=== PATIENT | female | born 1950 | race Caucasian/White ===

== ENCOUNTER → 2016-12-09 | Day surgery (SDC) | payer OTHER ==
--- NOTE | 2016-12-10 14:20 | PATH ---
Cytology Non-Gynecological Report Patient Name: CELE OREILLY [facility]. Rec. #: [id number] /Age/Gender: 1950 (Age: 65) / F Account: [id number] Location: RADIOLOGY Taken: 12/09/2016 Received: 12/09/2016 Reported: 12/10/2016 Physicians: Virginia Mullen M.D. Specimen(s) Received THYROID FNA (MIDLINE) Clinical History Midline thyroid nodule, 2.51 x 1.90 x 2.69 cm Final Diagnosis THYROID GLAND, MIDLINE, US GUIDED FINE NEEDLE ASPIRATION BIOPSY: SATISFACTORY FOR EVALUATION. NO MALIGNANT CELLS IDENTIFIED. CONSISTENT WITH NODULAR HYPERPLASIA (BENIGN FOLLICULAR NODULE, BETHESDA CATEGORY II, BENIGN), SEE COMMENT. Comment: The smears show clusters of bland appearing follicular epithelial cells, many with Hurthle cell (oncocytic) change arranged in mixed macro- and microfollicles. Colloid is present. Electronically Signed Jordan Lopez M.D. Gross Description Received are four air dried smears, four smears in 95% alcohol, and 20 cc of bloody fluid in formalin. Four diff-quik stained slides, four Pap stained slides and one cell block are made.
== END | disposition home or self-care (01) ==
LOC: JRADIR 09:06
PROVIDERS: ATTEND Internal Medicine Endocrinology, Diabetes & Metabolism
PROC: 0G9K3ZX Drainage of Thyroid Gland, Percutaneous Approach, Diagnostic (ICD-10-PCS; principal; 2016-12-09)
PROC: BG44ZZZ Ultrasonography of Thyroid Gland (ICD-10-PCS; 2016-12-09)
DX: E04.1 Nontoxic single thyroid nodule (principal)
CPT/HCPCS: 76942; 88173; 88305-TC

== ENCOUNTER 2018-05-14 14:59 | Emergency (ER) | payer OTHER ==
[2018-05-14 15:06] VITALS: BP 134/64; PULSE 82; TEMP 97.9; BMI 30.3
--- NOTE | 2018-05-14 15:52 | PDOC ---
History of Present Illness - General Chief Complaint: Cold Symptoms Stated Complaint: COUGH Time Seen by Provider: 05/14/18 15:06 History Source: Patient Exam Limitations: Language Barrier Past History - Past Medical History Allergies/Adverse Reactions: Allergies Allergy/AdvReac Type Severity Reaction Status Date / Time No Known Allergies Allergy Verified 05/14/18 15:04 Home Medications: Ambulatory Orders Hydrochlorothiazide [Hctz -] 12.5 mg PO DAILY 05/14/18 Meloxicam [Mobic] 15 mg PO ASDIR 05/14/18 Methimazole 5 mg PO ASDIR 05/14/18 Sertraline HCl [Zoloft -] 25 mg PO DAILY 05/14/18 Simvastatin 20 mg PO ASDIR 05/14/18 COPD: No HTN: Yes Seizures: Yes - Suicide/Smoking/Psychosocial Hx Smoking History: Never smoked *Physical Exam - Vital Signs Last Vital Signs Temp Pulse Resp BP Pulse Ox 97.9 F 82 18 134/64 99 05/14/18 15:04 05/14/18 15:04 05/14/18 15:04 05/14/18 15:04 05/14/18 15:04 - Physical Exam HEENT: positive: Normal ENT Inspection, TMs Normal, Pharynx Normal. negative: Muffled/Hoarse voice, Pharyngeal Erythema, Tonsillar Exudate, Tonsillar Erythema , Nasal Congestion, Rhinorrhea, Sinus Tenderness, TM Bulging, TM Erythema Respiratory/Chest: positive: Lungs Clear, Normal Breath Sounds. negative: Respiratory Distress Cardiovascular: positive: Regular Rhythm, Regular Rate, S1, S2. negative: Murmur Gastrointestinal/Abdominal: positive: Normal Bowel Sounds, Soft. negative: Tender, Distended, Guarding, Rebound Integumentary: positive: Normal Color Neurologic: positive: Alert Moderate Sedation - Procedure Monitoring Vital Signs: Procedure Monitoring Vital Signs Temperature 97.9 F 05/14/18 15:04 Pulse Rate 82 05/14/18 15:04 Respiratory Rate 18 05/14/18 15:04 Blood Pressure 134/64 05/14/18 15:04 O2 Sat by Pulse Oximetry (%) 99 05/14/18 15:04 ED Treatment Course - RADIOLOGY Radiology Studies Ordered: Category Date Time Status CHEST PA & LAT [RAD] Stat Radiology 05/14/18 15:28 Taken Medical Decision Making - Medical Decision Making 67 y/o F hx of HTN, hyperthyroidism, gastritis presents with dry cough x 20 days along with rhinorrhea, slight nasal congestion, dry throat. Has been trying to contact her PCP but unable to make appointment. Denies fever, sob, wheezing, cp, abd pain, n/v/d. PE unremarkable Given duration of symptoms, will get CXR 05/14/18 15:50 CXR reviewed and negative Also reviewed patient's HTN meds and patient is only taking Hctz Advised f/u with PCP for further care 05/14/18 16:00 *DC/Admit/Observation/Transfer Diagnosis at time of Disposition: Cough - Discharge Dispostion Disposition: HOME Condition at time of disposition: Good - Referrals Referrals: Asael Emanuel MD [Primary Care Provider] - 3 days - Patient Instructions Printed Discharge Instructions: DI for Cough -- Adult - Post Discharge Activity
== END 2018-05-14 16:03 | disposition home or self-care (01) ==
LOC: JERFT 14:59
DX: R05 Cough (principal); I10 Essential (primary) hypertension; E05.91 Thyrotoxicosis, unspecified with thyrotoxic crisis or storm; Z86.69 Personal history of other diseases of the nervous system and sense organs
CPT/HCPCS: 71046-TC-FY; 99281-25

== ENCOUNTER 2019-04-12 12:51 | Emergency (ER) | payer OTHER ==
[2019-04-12 12:57] VITALS: BP 132/63; PULSE 90; TEMP 98.1; BMI 29.0
[2019-04-12] MEDS ORDERED: LIDOCAINE HCL 1%, 10 MG/ML (50 mL VIAL) SQ ONE (14:36)
[2019-04-12] MEDS ORDERED: LIDOCAINE HCL 1%, 10 MG/ML (20ML VIAL) ONE (14:42)
--- NOTE | 2019-04-12 15:07 | PDOC ---
History of Present Illness - General Chief Complaint: Pain Stated Complaint: BACK PAIN Time Seen by Provider: 04/12/19 13:25 - History of Present Illness Initial Comments: 04/12/19 15:05 68-year-old female presents for evaluation of a painful area on her back x2 weeks no systemic symptoms Past History - Past Medical History Allergies/Adverse Reactions: Allergies Allergy/AdvReac Type Severity Reaction Status Date / Time No Known Allergies Allergy Verified 04/12/19 12:57 Home Medications: Ambulatory Orders Hydrochlorothiazide [Hctz -] 12.5 mg PO DAILY 05/14/18 Meloxicam [Mobic] 15 mg PO ASDIR 05/14/18 Methimazole 5 mg PO ASDIR 05/14/18 Sertraline HCl [Zoloft -] 25 mg PO DAILY 05/14/18 Simvastatin 20 mg PO ASDIR 05/14/18 Cephalexin [Keflex] 500 mg PO QID #40 capsule 04/12/19 Sulfamethoxazole/Trimethoprim [Bactrim Ds -] 1 tab PO BID #14 tablet 04/12/19 COPD: No HTN: Yes Hypercholesterolemia: Yes Seizures: Yes Thyroid Disease: Yes Other medical history: DEPRESSION - Psycho Social/Smoking Cessation Hx Smoking History: Never smoked Review of Systems - Review of Systems Constitutional: No: Fever Integumentary: Yes: See HPI *Physical Exam - Vital Signs Last Vital Signs Temp Pulse Resp BP Pulse Ox 98.1 F 90 18 132/63 98 04/12/19 12:54 04/12/19 12:54 04/12/19 12:54 04/12/19 12:54 04/12/19 12:54 - Physical Exam Comments: 04/12/19 15:06 There is a large fluctuant mildly erythemic area with mild surrounding warmth on the mid upper back about 6 cm circumferentially ED Treatment Course - Medications Given in the ED: ED Medications Discontinued Medications Generic Name Dose Route Start Last Admin Trade Name Freq PRN Reason Stop Dose Admin Lidocaine HCl 20 ml 04/12/19 14:36 04/12/19 14:44 Xylocaine 1% SQ 04/12/19 14:37 20 ml ONCE ONE Administration Medical Decision Making - Medical Decision Making 04/12/19 15:06 Aseptically the area was sterilely prepped anesthetized with 15 cc 1% lidocaine without epinephrine incised vertically purulent material was cultured the wound was deloculated packed with 1 inch iodoform and a dry sterile dressing was placed this was tolerated well. Discharge - Discharge Information Problems reviewed: Yes Clinical Impression/Diagnosis: Abscess Condition: Stable Disposition: HOME - Admission No - Additional Discharge Information Prescriptions: Cephalexin [Keflex] 500 mg PO QID #40 capsule Sulfamethoxazole/Trimethoprim [Bactrim Ds -] 1 tab PO BID #14 tablet - Follow up/Referral Referrals: Asael Emanuel MD [Primary Care Provider] - - Patient Discharge Instructions Patient Printed Discharge Instructions: DI for Skin Abscess, Incision and Drainage of a Skin Abscess, DI for Incision and Drainage of a Skin Abscess Additional Instructions: Please start the antibiotics today and take them as directed. Tylenol and Motrin as directed for pain. Return to the emergency room in 2 days for a wound check and packing removal. Return to the emergency room sooner if problems develop. Keep the wound clean and dry the dressing in place for the next 48 hours until reevaluated in the emergency room. - Post Discharge Activity
== END 2019-04-12 15:31 | disposition home or self-care (01) ==
LOC: JERFT 12:51
PROC: 0J970ZZ Drainage of Back Subcutaneous Tissue and Fascia, Open Approach (ICD-10-PCS; principal; 2019-04-12)
PROC: 3E023BZ Introduction of Anesthetic Agent into Muscle, Percutaneous Approach (ICD-10-PCS; 2019-04-12)
DX: L02.212 Cutaneous abscess of back [any part, except buttock and flank] (principal); I10 Essential (primary) hypertension; E78.00 Pure hypercholesterolemia, unspecified; E07.9 Disorder of thyroid, unspecified; F32.9 Major depressive disorder, single episode, unspecified; Z86.69 Personal history of other diseases of the nervous system and sense organs
CPT/HCPCS: 87070; 87205; 99281-25

== ENCOUNTER 2019-04-14 19:39 | Emergency (ER) | payer OTHER ==
[2019-04-14 19:51] VITALS: BP 139/56; PULSE 86; TEMP 98.5; BMI 29.0
--- NOTE | 2019-04-14 19:52 | PDOC ---
Rapid Medical Evaluation Time Seen by Provider: 04/14/19 19:50 Medical Evaluation: Allergies Allergy/AdvReac Type Severity Reaction Status Date / Time No Known Allergies Allergy Verified 04/14/19 19:47 04/14/19 19:50 Pt presents for packing removal from abscess drainage on her back on 04/12. Seen in our ED. She is taking the antibiotics as directed Exam: Packing/dressing in place. Orders: Nothing Pt to proceed to the ER for further evaluation Discharge Disposition - Diagnosis Abscess packing removal - Referrals - Patient Instructions - Post Discharge Activity
--- NOTE | 2019-04-14 20:28 | PDOC ---
History of Present Illness - General Chief Complaint: Revisit,Wound Recheck Stated Complaint: SUTRE/STAPLE REMOVAL Time Seen by Provider: 04/14/19 19:50 - History of Present Illness Initial Comments: 04/14/19 20:26 68-year-old female presents for reevaluation of the wound which was incised and drained 2 days ago by myself. Since incision and drainage she has had no sequelae she is feeling better no systemic symptoms Past History - Past Medical History Allergies/Adverse Reactions: Allergies Allergy/AdvReac Type Severity Reaction Status Date / Time No Known Allergies Allergy Verified 04/14/19 19:47 Home Medications: Ambulatory Orders Hydrochlorothiazide [Hctz -] 12.5 mg PO DAILY 05/14/18 Meloxicam [Mobic] 15 mg PO ASDIR 05/14/18 Methimazole 5 mg PO ASDIR 05/14/18 Sertraline HCl [Zoloft -] 25 mg PO DAILY 05/14/18 Simvastatin 20 mg PO ASDIR 05/14/18 Cephalexin [Keflex] 500 mg PO QID #40 capsule 04/12/19 Sulfamethoxazole/Trimethoprim [Bactrim Ds -] 1 tab PO BID #14 tablet 04/12/19 COPD: No HTN: Yes Hypercholesterolemia: Yes Seizures: Yes Thyroid Disease: Yes - Psycho Social/Smoking Cessation Hx Smoking History: Never smoked Hx Alcohol Use: No Drug/Substance Use Hx: No Review of Systems - Review of Systems Constitutional: No: Fever *Physical Exam - Vital Signs Last Vital Signs Temp Pulse Resp BP Pulse Ox 98.5 F 86 16 139/56 L 04/14/19 19:48 04/14/19 19:48 04/14/19 19:48 04/14/19 19:48 - Physical Exam Comments: 04/14/19 20:26 The dressing was removed as well as the packing. Erythema around the wound edges as last the skin remains indurated without warmth there is no drainage. Medical Decision Making - Medical Decision Making 04/14/19 20:26 Wet-to-dry black dressing was placed and instructions given to family members to change dressings twice daily she will report back to the emergency room in 3 days for a wound check. I have encouraged her to follow-up with general surgery for wound checks. She is on board she will report back to the emergency room should she not get follow-up. Of note she does have a sebaceous cyst on the anterior aspect of her scalp which I will refer her to dermatology. Discharge - Discharge Information Problems reviewed: Yes Clinical Impression/Diagnosis: Abscess packing removal, Sebaceous cyst Condition: Stable Disposition: HOME - Admission No - Follow up/Referral Referrals: Asael Emanuel MD [Primary Care Provider] - Cl Nieves MD [Staff Physician] - Kimberly Chung MD [Staff Physician] - - Patient Discharge Instructions Additional Instructions: Wet-to-dry dressing changes as instructed twice daily for the next 3 days. Please follow-up with general surgery within the next 2 to 3 days. If you cannot get appointment with general surgery and that time return to the emergency room in 3 days for a wound check. Follow-up with dermatology for your sebaceous cyst. Continue with the antibiotics as directed - Post Discharge Activity
== END 2019-04-14 23:03 | disposition home or self-care (01) ==
LOC: JERFT 19:39
DX: Z48.01 Encounter for change or removal of surgical wound dressing (principal)
CPT/HCPCS: 99281-25

== ENCOUNTER 2019-07-16 06:16 | Inpatient (IN) | payer OTHER ==
[2019-07-08 12:12] VITALS: BMI 29.0
[2019-07-16] MEDS ORDERED: MIDAZOLAM HCL 2 MG/2 ML SINGLE DOSE VIAL ONE (06:39)
[2019-07-16] MEDS ORDERED: BUPIVACAINE LIPOSOME/PF (EXPAREL) 266 MG/20 ML VIAL ONE (06:40)
[2019-07-16] MEDS ORDERED: SODIUM CHLORIDE 0.9% P/F 10 ML VIAL IJ ONE ×2 (06:40→10:20)
[2019-07-16] MEDS ORDERED: ceFAZolin SODIUM 1 GM VIAL ONE (07:17)
[2019-07-16] MEDS ORDERED: LIDOCAINE 1% P/F 10 MG/ML VIAL ONE (07:30)
[2019-07-16] MEDS ORDERED: BUPIVACAINE HCL/PF 0.5% (5MG/ML) 10 ML VIAL ONE (07:34)
--- NOTE | 2019-07-16 07:34 | HP ---
History & Physical Update - Physical Physical: No Change - Assessment Assessment: No Change - Plan Plan: No Change
[2019-07-16] MEDS ORDERED: PROPOFOL 20 ML ONE ×4 (07:35→10:58)
[2019-07-16] MEDS ORDERED: TRANEXAMIC ACID 1000 MG/10 ML VIAL ONE (07:39)
[2019-07-16] MEDS ORDERED: VANCOMYCIN 1,000 MG VIAL (RESTRICTED TO ID ONLY) ONE (10:08)
[2019-07-16] MEDS ORDERED: EPINEPHrine/PF 1 MG/1 ML (1:1,000) AMPULE ONE (10:20)
[2019-07-16] MEDS ORDERED: BUPIVACAINE HCL/PF 2.5 MG/ML - 30 ML VIAL IJ ONE (10:20)
[2019-07-16] MEDS ORDERED: ONDANSETRON 4 MG/2 ML VIAL IVPUSH PRN ×2 (11:50→12:21)
--- NOTE | 2019-07-16 11:57 | HP ---
HISTORY OF PRESENT ILLNESS: 68 year-old female with a PMH significant for right knee osteoarthritis s/p right Darek total knee replacement today with Dr. Clifton Carmona. PAST MEDICAL HISTORY: Right knee osteoarthritis PAST SURGICAL HISTORY: x 1 Social History: single, lives in an apartment Smoking: never Alcohol: no Drugs: no Allergies No Known Allergies Allergy (Verified 04/14/19 19:47) HOME MEDICATIONS: Home Medications Medication Instructions Recorded Methimazole 5 mg PO DAILY 05/14/18 Sertraline HCl [Zoloft -] 25 mg PO DAILY 05/14/18 Simvastatin 20 mg PO DAILY 05/14/18 Amlodipine Besylate 10 mg PO DAILY 07/08/19 Pantoprazole Sodium 40 mg PO DAILY 07/08/19 REVIEW OF SYSTEMS CONSTITUTIONAL: Absent: fever, chills, diaphoresis, generalized weakness, malaise, loss of appetite, weight change HEENT: Absent: rhinorrhea, nasal congestion, throat pain, throat swelling, difficulty swallowing, mouth swelling, ear pain, eye pain, visual changes CARDIOVASCULAR: Absent: chest pain, syncope, palpitations, irregular heart rate, lightheadedness , peripheral edema RESPIRATORY: Absent: cough, shortness of breath, dyspnea with exertion, orthopnea, wheezing, stridor, hemoptysis GASTROINTESTINAL: Absent: abdominal pain, abdominal distension, nausea, vomiting, diarrhea, constipation, melena, hematochezia GENITOURINARY: Absent: dysuria, frequency, urgency, hesitancy, hematuria, flank pain, genital pain MUSCULOSKELETAL: +post-surgical site pain Absent: myalgia, arthralgia, joint swelling, back pain, neck pain SKIN: Absent: rash, itching, pallor HEMATOLOGIC/IMMUNOLOGIC: Absent: easy bleeding, easy bruising, lymphadenopathy, frequent infections ENDOCRINE: Absent: unexplained weight gain, unexplained weight loss, heat intolerance, cold intolerance NEUROLOGIC: Absent: headache, focal weakness or paresthesias, dizziness, unsteady gait, seizure, mental status changes, bladder or bowel incontinence PSYCHIATRIC: Absent: anxiety, depression, suicidal or homicidal ideation, hallucinations. PHYSICAL EXAMINATION Vital Signs - 24 hr 07/16/19 07/16/19 07/16/19 06:35 11:30 11:35 Temperature 98.5 F 98.5 F Pulse Rate 89 89 88 Respiratory 18 18 18 Rate Blood Pressure 142/82 129/46 L 114/69 O2 Sat by Pulse 98 Oximetry (%) GENERAL: Awake, alert, and fully oriented, in no acute distress. HEAD: Normal with no signs of trauma. EYES: Pupils equal, round and reactive to light, extraocular movements intact, sclera anicteric, conjunctiva clear. No lid lag. LUNGS: Breath sounds equal, clear to auscultation bilaterally. No wheezes, and no crackles. No accessory muscle use. HEART: Regular rate and rhythm, normal S1 and S2 ABDOMEN: Soft, nontender, not distended, normoactive bowel sounds. UPPER EXTREMITIES: 2+ pulses, warm, well-perfused. No cyanosis. No clubbing. No peripheral edema. LOWER EXTREMITIES: Surgical dressing and wrapping c/d/i, ice pack over right knee, no drains; +flex/extend toes, sensory intact NEUROLOGICAL: Cranial nerves II-XII intact. Normal speech. Pre op Hgb 13.2 BUN 17 Cr 0.66 Intra op cefazolin x 2g LR 1,300mL UOP 0 EBL 25mL ASSESSMENT/PLAN: 68 year-old female with right knee osteoarthritis s/p right Darek total knee replacement on 07/16/[address] Carmona. Right Darek total knee replacement --POD #0 --perioperative antibiotics per surgery --pain management per surgery --ASA 325mg BID --protonix --bowel regimen --incentive spirometry FEN Fluids: LR@125mL/hr Electrolytes: replete as indicated Nutrition: regular diet DVT prophylaxis: OOB, ambulation, SCDs, TEDs, ASA 81mg BID Physical therapy Dispo: continues to require inpatient care. Full code. Visit type - Emergency Visit Emergency Visit: No - New Patient This patient is new to me today: Yes Date on this admission: 07/16/19 - Critical Care Critical Care patient: No
[2019-07-16] MEDS: oxyCODONE HCL 5 MG TABLET PO PRN ×3 (12:20→20:10)
[2019-07-16] MEDS ORDERED: MAG HYDROX/AL HYDROX/SIMETH 30 ML UNIT-DOSE CUP PO PRN (12:21)
--- NOTE | 2019-07-16 12:24 | OPR ---
DATE OF OPERATION: 07/16/2019 TITLE OF OPERATION: Right Total Knee Replacement PREOPERATIVE DIAGNOSIS: Right knee osteoarthritis POSTOPERATIVE DIAGNOSIS: Right knee osteoarthritis SURGEON: Clifton Carmona DO DIRECTOR OF CATEGORY MANAGEMENT: Lucio Carmen DO ANESTHESIA: Spinal anesthesia with regional block SPECIMEN: bone cuts PROSTHETIC DEVICE/IMPLANT: Triathlon X3 Symmetric patella size 29mm, 9mm thickness; Triathlon Posterior Stabilized Femur Size 3; Triathlon Tibial Baseplate Size 4; Triathlon Tibial Bearing insert - PS - size 4, 11mm thickness. COMPLICATIONS: none EBL: 50 mL TOURNIQUET TIME: 116 mins INDICATIONS FOR SURGERY: Ms. Patel is a 68 year old female who presented in the preoperative setting with a chief complaint of severe right knee osteoarthritis with severe knee pain , and a notable varus deformity; The patient was initially treated non- operatively with injections, medications, and physical therapy, but continued to have severe pain and ambulatory dysfunction. She was therefore indicated for a right total knee replacement with MAKOplasty robotic navigation. The risks and benefits of surgery and anesthesia were discussed in detail including but not limited to infection, continued pain, bleeding, blood clot, scarring/ arthrofibrosis, damage to vessels and nerves, instability or loosening of implant, difficulty ambulating, carolann-prosthetic fracture, failure to obtain the desired result, failure to heal, failure to return to significant activity. Understanding the risks and benefits, Ms. Patel and her family opted to proceed with surgical management. SURGEON'S NARRATIVE: On the day of surgery, the patient was taken to the operating room and placed on the OR table. Spinal anesthesia was administered by the anesthesiologist. The patient was then positioned supine on the table, and all bony prominences were padded. The knee was then prepped and draped in the usual sterile fashion, and IV antibiotics were given for infection prophylaxis. A surgical time-out was then performed with the team, and the patient's identity, procedure, side, availability of implants, and the administration of antibiotics were performed. With the knee flexed, a midline incision was made and carried down through the subcutaneous fat to the underlying retinaculum. A medial parapatellar arthrotomy was performed. This was followed by a subperiosteal dissection of the tissue off the proximal, medial tibia. A portion of the fat pad was removed from under the patellar tendon, and a small portion of fat was excised off the distal supracondylar femur. Electrocautery was used to achieve hemostasis. The knee was then flexed further and the anterior horn of the lateral meniscus was released from the midline. Next, the anterior and posterior cruciate ligaments were transected. Grade 4 changes were noted diffusely throughout the knee. Femoral and tibial checkpoints were then placed in the appropriate location using a drill. Two parallel bicortical self-drilling pins were placed in the tibial diaphysis after making stab incisions and bluntly dissecting down to bone. Two pins were then placed in the distal supracondylar femur. The Terarecon navigation arrays were attached to the femoral and tibial pins and the lower extremity was then registered to the robotic navigation device using various joint movements, as well as inputting several dozen reference points. The knee was then taken through a full range of motion with a corrective force applied. Alignment in varus and valgus, as well as flexion and extension, and soft tissue balance was measured in various positions. The navigation device showed a numerical and graphic representation of the soft tissue balance. The components were repositioned virtually using the software until optimal soft tissue balance was achieved on the screen. Once this was accomplished, the final plan was saved and sent to the robot. Self-retaining retractors were then placed at the joint line for exposure and protection of the collateral ligaments. The robot was brought into the sterile field and registered with the navigation device. The robotic arm with attached oscillating saw blade was then used to perform femoral and tibial bone cuts as per the saved software plan. The femoral box cut was made using the appropriately - sized manual cutting guide. The knee was then irrigated. Trial components were placed and the knee was taken through a full range of motion to assess soft tissue balance and alignment. The range of motion was found to be excellent and the soft tissue balance was optimal and according to plan. The knee was then put into extension and the patella everted. The synovium around the patella was circumscribed with electrocautery. A caliper was used to measure the patellar thickness, and a patellar resection reaming guide was used to ream the patella to the correct depth. The patella was then sized and drilled for the appropriate patellar button, with care taken to medialize it. A trial patella was then placed and the knee was again taken through a full range of motion. The knee was found to have both good balance and good patellar tracking. All of the components were removed except the tibial base plate. The appropriate instrumentation was used to drill and punch the proximal tibia for the keel of the final component. All bony surfaces were cleaned with the pulsatile lavage and dried. Bone cement was then prepared on the back table, and the final components were cemented in place in the usual fashion. Extruded cement was removed. The polyethylene trial was placed, the knee was put into extension, and axial pressure was applied for compression while the cement hardened. The patellar button was similarly cemented into place. Once the cement had hardened, the knee was taken through a full range of motion to assess stability, balance, and patellar tracking. This was found to be optimal and the trial polyethylene was exchanged for the appropriately sized real implant. The wound was then thoroughly irrigated with normal saline. A periarticular injection was used to locally infiltrate the capsular tissues surrounding the implant and prosthesis. Once this was done, the tourniquet was let down and all bleeders were cauterized. The parapatellar incision was closed with #1 Vicryl suture in a simple stitch fashion, and the subcuticular skin was closed with 0 Vicryl, 2-0 Vicryl suture, and the skin with mag. The tibial and femoral pins were removed and the incisions were irrigated thorougly, then closed with 3-0 Biosyn suture followed by steri-strips. A sterile Aquacell dressing and ANNA bandage was placed and the patient was placed in IVELISSE stockings and bilateral SCD's. She tolerated procedure well and arrived in recovery in stable condition. POST-OP PLAN: Pain Control DVT Prophylaxis (ASA 325MG BID x 6 weeks; SCDs while in bed, encourage early ambulation) WBAT/Physical Therapy daily D/C Ute POD 14 F/U Radiographs of the Right Knee F/U Daily AM Labs Will see her in my office on POD 14 for a post-operative visit.
[2019-07-16] MEDS ORDERED: LACTATED RINGERS SOLUTION 1,000 ML IV SCH (12:30)
[2019-07-16] MEDS: CEFAZOLIN 2 GM/D5W 2 GM/50 ML ML IVPB SCH (15:30)
[2019-07-16] MEDS: ATORVASTATIN CA 10 MG TABLET (FP) PO SCH ×2 (22:05→22:16)
[2019-07-16] MEDS: GABAPENTIN 300 MG CAPSULE PO SCH ×2 (22:05→22:12)
[2019-07-16] MEDS: SENNOSIDES/DOCUSATE COMBO (SENNA PLUS) TABLET (UD) PO SCH ×2 (22:05→22:16)
[2019-07-16] MEDS: DOCUSATE SODIUM 100 MG CAPSULE (FP) PO SCH ×2 (22:05→22:16)
[2019-07-17] MEDS: CEFAZOLIN 2 GM/D5W 2 GM/50 ML ML IVPB SCH (00:04)
[2019-07-17] MEDS: oxyCODONE HCL 5 MG TABLET PO PRN ×3 (05:13→20:36)
--- NOTE | 2019-07-17 08:39 | PN ---
Progress Note (short form) - Note Progress Note: ORTHOPEDIC SURGERY PROGRESS NOTE Department of Orthopedic Surgery SUBJECTIVE No acute events overnight. No complaints currently. Denies chest pain, shortness of breath, or calf pain. No nausea or vomiting. Tolerating oral intake. Pain control difficult overnight, but improving. PHYSICAL EXAMINATION General: Alert, oriented, cooperative and no distress. Right Lower Extremity: Dressing clean/dry/intact; Skin intact, no lesions, rashes or ulcers noted. Muscle mass equal and symmetric to contralateral side. No atrophy noted. No masses or effusions noted. No tenderness to palpation. Full passive and active ROM of the ankle and foot, free from pain. LROM of the knee secondary to post op. EHL/TA/GS motor intact; SILT distally; 2+ DP pulses; Cap refill brisk. DVT Exam: No evidence of DVT seen on physical exam; No cords or calf tenderness ; No significant calf/ankle edema. Intake & Output 07/15/19 07/16/19 07/17/19 23:59 23:59 23:59 Intake Total 3450 Output Total 1500 Balance 1950 Intake: IV 2150 Lactated Ringers Solution 750 1,000 ml @ 125 mls/hr IV ASDIR CARLOS Rx#: [id number] IVPB 50 Oral 1250 Output: Urine 1500 Void 1500 Other: Voiding Method Bedpan Bedpan Weight 180 lb Height 5 ft 6 in Body Mass Index (BMI) 29.0 Weight Measurement Method Standing Scale Active Medications Generic Name Dose Route Start Last Admin Trade Name Freq PRN Reason Stop Dose Admin Al Hydroxide/Mg Hydroxide 30 ml 07/16/19 12:21 Mylanta Oral Suspension - PO Q4H PRN DYSPEPSIA Amlodipine Besylate 10 mg 07/17/19 10:00 Norvasc - PO DAILY CARL[facility] Aspirin 325 mg 07/17/19 10:00 Asa - PO BID CAR[facility] Atorvastatin Calcium 10 mg 07/16/19 22:00 07/16/19 22:16 Lipitor - PO Not Given HS CARLOS Docusate Sodium 300 mg 07/16/19 22:00 07/16/19 22:16 Colace - PO Not Given HS CARLOS Fentanyl 25 mcg 07/16/19 11:50 Sublimaze Injection - IVPUSH [id number] PRN PAIN-PACU ORDER X 4 DOSES ONLY Gabapentin 300 mg 07/16/19 22:00 07/16/19 22:12 Neurontin - PO 07/19/19 21:59 Not Given BID [facility] Lactated Ringer's 1,000 mls @ 75 mls/hr 07/16/19 12:00 Lactated Ringers Solution IV ASDIR [facility] Methimazole 5 mg 07/17/19 10:00 Tapazole - PO DAILY [facility] Multivitamins/Minerals/Vitamin C 1 tab 07/17/19 10:00 Tab-A-Vit - PO DAILY [facility] Ondansetron HCl 4 mg 07/16/19 12:21 Zofran Injection IVPUSH Q6H PRN NAUSEA Oxycodone HCl 5 mg 07/16/19 12:06 Roxicodone - PO Q3H PRN PAIN LEVEL 1-5 Oxycodone HCl 10 mg 07/16/19 12:07 07/17/19 05:13 Roxicodone - PO 10 mg Q3H PRN Administration PAIN LEVEL 6-10 Pantoprazole Sodium 40 mg 07/17/19 10:00 Protonix - PO DAILY [facility] Senna/Docusate Sodium 2 tablet 07/16/19 22:00 07/16/19 22:16 Pericolace - PO Not Given BID [facility] Sertraline HCl 25 mg 07/17/19 10:00 Zoloft - PO DAILY [facility] Vital Signs (last) Temp Pulse Resp BP Pulse Ox 99.3 F 81 19 146/59 L 96 07/17/19 04:00 07/17/19 04:00 07/17/19 04:00 07/17/19 04:00 07/17/19 07:06 ASSESSMENT AND PLAN Ms. Patel is a 68 year old female s/p right total knee arthroplasty post op day 1. Doing well. - Pain control: Transition to oral pain medications, minimize narcotic use - DVT prophylaxis (Aspirin 325mg BID x 6 weeks) - Ice/Elevation of right knee - Elevate HOB, encourage oral intake - Appreciate medical management (Nutrition optimization, decubitus precautions heel/sacrum) - PT Daily; WBAT LLE - Dispo planning - Patient has a post op appointment scheduled with my office already for wound check and staple removal.
[2019-07-17] MEDS: SENNOSIDES/DOCUSATE COMBO (SENNA PLUS) TABLET (UD) PO SCH ×2 (09:30→22:32)
[2019-07-17] MEDS: METHIMAZOLE 5 MG TABLET (FP) PO SCH (09:30)
[2019-07-17] MEDS: amLODIPine BESYLATE 10 MG TABLET (FP) PO SCH (09:30)
[2019-07-17] MEDS: GABAPENTIN 300 MG CAPSULE PO SCH ×2 (09:30→22:32)
[2019-07-17] MEDS: SERTRALINE HCL 25 MG TABLET (FP) PO SCH (09:30)
[2019-07-17] MEDS: MULTIVITAMINS (DAILY MVI) TABLET (FP) PO SCH (09:30)
[2019-07-17] MEDS: ASPIRIN 325 MG TABLET PO SCH ×2 (09:30→22:31)
[2019-07-17] MEDS: PANTOPRAZOLE 40 MG TABLET PO SCH (09:30)
[2019-07-17] MEDS ORDERED: PATIENT'S OWN MEDICATION (NON-FORMULARY) (Simvastatin [Simvastatin] 20 MG) PO SCH (10:00)
[2019-07-17 10:06] LABS: CALCIUM 9.2 mg/dl (8.5-10); CREATININE 0.7 mg/dl (0.55-1.3); POTASSIUM 3.8 mmol/L (3.5-5.1)
--- NOTE | 2019-07-17 10:47 | PN ---
Physical Exam: SUBJECTIVE: Patient seen and examined oob to chair. Participated in PT today, feels she did well. Pain is well-managed. OBJECTIVE: Vital Signs Period Temp Pulse Resp BP Sys/Blake Pulse Ox Last 24 Hr 97.6 F-99.5 F 76-92 16-19 105-160/43-69 95-100 GENERAL: Awake, alert, and fully oriented, in no acute distress. HEAD: Normal with no signs of trauma. EYES: Pupils equal, round and reactive to light, extraocular movements intact, sclera anicteric, conjunctiva clear. No lid lag. LUNGS: Breath sounds equal, clear to auscultation bilaterally. No wheezes, and no crackles. No accessory muscle use. HEART: Regular rate and rhythm, normal S1 and S2 ABDOMEN: Soft, nontender, not distended, normoactive bowel sounds. UPPER EXTREMITIES: 2+ pulses, warm, well-perfused. No cyanosis. No clubbing. No peripheral edema. LOWER EXTREMITIES: Surgical dressing and wrapping c/d/i, ice pack over right knee, no drains; +flex/extend toes, sensory intact NEUROLOGICAL: Cranial nerves II-XII intact. Normal speech. Laboratory Results - last 24 hr 07/17/19 06:00 Sodium 129 L Potassium 3.8 Chloride 97 L Carbon Dioxide 23 Anion Gap 9 BUN 14.0 Creatinine 0.7 Est GFR (CKD-EPI)AfAm 103.91 Est GFR (CKD-EPI)NonAf 89.65 Random Glucose 135 H Calcium 9.2 Active Medications Generic Name Dose Route Start Last Admin Trade Name Freq PRN Reason Stop Dose Admin Al Hydroxide/Mg Hydroxide 30 ml 07/16/19 12:21 Mylanta Oral Suspension - PO Q4H PRN DYSPEPSIA Amlodipine Besylate 10 mg 07/17/19 10:00 Norvasc - PO DAILY [facility] Aspirin 325 mg 07/17/19 10:00 Asa - PO BID [facility] Atorvastatin Calcium 10 mg 07/16/19 22:00 07/16/19 22:16 Lipitor - PO Not Given HS CARLOS Docusate Sodium 300 mg 07/16/19 22:00 07/16/19 22:16 Colace - PO Not Given HS CAR[facility] Fentanyl 25 mcg 07/16/19 11:50 Sublimaze Injection - IVPUSH [id number] PRN PAIN-PACU ORDER X 4 DOSES ONLY Gabapentin 300 mg 07/16/19 22:00 07/16/19 22:12 Neurontin - PO 07/19/19 21:59 Not Given BID [facility] Lactated Ringer's 1,000 mls @ 75 mls/hr 07/16/19 12:00 Lactated Ringers Solution IV ASDIR [facility] Methimazole 5 mg 07/17/19 10:00 Tapazole - PO DAILY [facility] Multivitamins/Minerals/Vitamin C 1 tab 07/17/19 10:00 Tab-A-Vit - PO DAILY [facility] Ondansetron HCl 4 mg 07/16/19 12:21 Zofran Injection IVPUSH Q6H PRN NAUSEA Oxycodone HCl 5 mg 07/16/19 12:06 Roxicodone - PO Q3H PRN PAIN LEVEL 1-5 Oxycodone HCl 10 mg 07/16/19 12:07 07/17/19 05:13 Roxicodone - PO 10 mg Q3H PRN Administration PAIN LEVEL 6-10 Pantoprazole Sodium 40 mg 07/17/19 10:00 Protonix - PO DAILY [facility] Senna/Docusate Sodium 2 tablet 07/16/19 22:00 07/16/19 22:16 Pericolace - PO Not Given BID [facility] Sertraline HCl 25 mg 07/17/19 10:00 Zoloft - PO DAILY [facility] Pre op Hgb 13.2 BUN 17 Cr 0.66 Intra op cefazolin x 2g LR 1,300mL UOP 0 EBL 25mL ASSESSMENT/PLAN: 68 year-old female with right knee osteoarthritis s/p right Darek total knee replacement on 07/16/[address] Carmona. Right Darek total knee replacement --POD #1 --perioperative antibiotics complete --pain well-controlled with PO meds --ASA 325mg BID --protonix --bowel regimen --incentive spirometry Thyroid disorder --continue methimazole Anxiety/depression --continue Zoloft FEN Fluids: PO intake adequate Electrolytes: replete as indicated Nutrition: regular diet DVT prophylaxis: OOB, ambulation, SCDs, TEDs, ASA 325mg BID Physical therapy Dispo: continues to require inpatient care. Full code. Visit type - Emergency Visit Emergency Visit: No - New Patient This patient is new to me today: No - Critical Care Critical Care patient: No - Discharge Referral Referred to [facility] Med P.C.: No
[2019-07-17 10:53] LABS: HEMOGLOBIN 12.9 GM/dL (10.7-15.3); MCH 27.2 pg (25.7-33.7); MCHC 33.9 g/dl (32.0-36.0); MEAN CELL VOLUME 80.3 fl (80-96); MEAN PLT VOLUME 7.8 fl (7.5-11.1); PLATELET COUNT 384 K/MM3 (134-434); RBC 4.73 M/mm3 (3.60-5.2); RDW 13.1 % (11.6-15.6); WHITE BLOOD COUNT 18.7 K/mm3 (4.0-10.0)
[2019-07-17] MEDS: LACTATED RINGERS SOLUTION 1,000 ML IV SCH (14:47)
[2019-07-17] MEDS: DOCUSATE SODIUM 100 MG CAPSULE (FP) PO SCH (22:31)
[2019-07-17] MEDS: ATORVASTATIN CA 10 MG TABLET (FP) PO SCH (22:31)
[2019-07-18] MEDS: oxyCODONE HCL 5 MG TABLET PO PRN ×2 (06:22→09:17)
[2019-07-18 08:45] LABS: BASO % 1.4 % (0-2.0); HEMATOCRIT 37.6 % (32.4-45.2); HEMOGLOBIN 12.6 GM/dl (10.7-15.3); LYMPH % 6.7 % (8-40); MCH 27.2 pg (25.7-33.7); MCHC 33.6 g/dl (32.0-36.0); MEAN PLT VOLUME 7.9 fl (7.5-11.1); MONO % 7.4 % (3.8-10.2); NEUT % 84.5 % (42.8-82.8); PLATELET COUNT 383 K/MM3 (134-434); RBC 4.64 M/mm3 (3.60-5.2); WHITE BLOOD COUNT 15.6 K/mm3 (4.0-10.8)
[2019-07-18 09:15] LABS: ALBUMIN 3.6 g/dl (3.4-5.0); BILIRUBIN,TOTAL 1.1 mg/dl (0.2-1); CREATININE 0.7 mg/dl (0.55-1.3); MAGNESIUM 1.9 mg/dL (1.8-2.4); POTASSIUM 3.8 mmol/L (3.5-5.1); TOT PROT 7.1 g/dl (6.4-8.2)
--- NOTE | 2019-07-18 09:18 | PN ---
Progress Note (short form) - Note Progress Note: ORTHOPEDIC SURGERY PROGRESS NOTE Department of Orthopedic Surgery SUBJECTIVE No acute events overnight. No complaints currently. Denies chest pain, shortness of breath, or calf pain. No nausea or vomiting. Tolerating oral intake. Pain control difficult overnight, but improving. PHYSICAL EXAMINATION General: Alert, oriented, cooperative and no distress. Right Lower Extremity: Dressing clean/dry/intact; Skin intact, no lesions, rashes or ulcers noted. Muscle mass equal and symmetric to contralateral side. No atrophy noted. No masses or effusions noted. No tenderness to palpation. Full passive and active ROM of the ankle and foot, free from pain. LROM of the knee secondary to post op. EHL/TA/GS motor intact; SILT distally; 2+ DP pulses; Cap refill brisk. DVT Exam: No evidence of DVT seen on physical exam; No cords or calf tenderness ; No significant calf/ankle edema. Intake & Output 07/15/19 07/16/19 07/17/19 23:59 23:59 23:59 Intake Total 3450 Output Total 1500 Balance 1950 Intake: IV 2150 Lactated Ringers Solution 750 1,000 ml @ 125 mls/hr IV ASDIR CARLOS Rx#: [id number] IVPB 50 Oral 1250 Output: Urine 1500 Void 1500 Other: Voiding Method Bedpan Bedpan Weight 180 lb Height 5 ft 6 in Body Mass Index (BMI) 29.0 Weight Measurement Method Standing Scale Active Medications Generic Name Dose Route Start Last Admin Trade Name Freq PRN Reason Stop Dose Admin Al Hydroxide/Mg Hydroxide 30 ml 07/16/19 12:21 Mylanta Oral Suspension - PO Q4H PRN DYSPEPSIA Amlodipine Besylate 10 mg 07/17/19 10:00 Norvasc - PO DAILY [facility] Aspirin 325 mg 07/17/19 10:00 Asa - PO BID [facility] Atorvastatin Calcium 10 mg 07/16/19 22:00 07/16/19 22:16 Lipitor - PO Not Given HS CARL[facility] Docusate Sodium 300 mg 07/16/19 22:00 07/16/19 22:16 Colace - PO Not Given HS [facility] Fentanyl 25 mcg 07/16/19 11:50 Sublimaze Injection - IVPUSH [id number] PRN PAIN-PACU ORDER X 4 DOSES ONLY Gabapentin 300 mg 07/16/19 22:00 07/16/19 22:12 Neurontin - PO 07/19/19 21:59 Not Given BID [facility] Lactated Ringer's 1,000 mls @ 75 mls/hr 07/16/19 12:00 Lactated Ringers Solution IV ASDIR [facility] Methimazole 5 mg 07/17/19 10:00 Tapazole - PO DAILY [facility] Multivitamins/Minerals/Vitamin C 1 tab 07/17/19 10:00 Tab-A-Vit - PO DAILY [facility] Ondansetron HCl 4 mg 07/16/19 12:21 Zofran Injection IVPUSH Q6H PRN NAUSEA Oxycodone HCl 5 mg 07/16/19 12:06 Roxicodone - PO Q3H PRN PAIN LEVEL 1-5 Oxycodone HCl 10 mg 07/16/19 12:07 07/17/19 05:13 Roxicodone - PO 10 mg Q3H PRN Administration PAIN LEVEL 6-10 Pantoprazole Sodium 40 mg 07/17/19 10:00 Protonix - PO DAILY [facility] Senna/Docusate Sodium 2 tablet 07/16/19 22:00 07/16/19 22:16 Pericolace - PO Not Given BID [facility] Sertraline HCl 25 mg 07/17/19 10:00 Zoloft - PO DAILY [facility] Vital Signs (last) Temp Pulse Resp BP Pulse Ox 99.3 F 81 19 146/59 L 96 07/17/19 04:00 07/17/19 04:00 07/17/19 04:00 07/17/19 04:00 07/17/19 07:06 ASSESSMENT AND PLAN Ms. Patel is a 68 year old female s/p right total knee arthroplasty post op day 2. Doing well. - Pain control: Transition to oral pain medications, minimize narcotic use - DVT prophylaxis (Aspirin 325mg BID x 6 weeks) - Ice/Elevation of right knee - Elevate HOB, encourage oral intake - Appreciate medical management (Nutrition optimization, decubitus precautions heel/sacrum) - PT Daily; WBAT LLE - Dispo planning - Patient has a post op appointment scheduled with my office already for wound check and staple removal.
[2019-07-18] MEDS: SENNOSIDES/DOCUSATE COMBO (SENNA PLUS) TABLET (UD) PO SCH (10:39)
[2019-07-18] MEDS: GABAPENTIN 300 MG CAPSULE PO SCH (10:39)
[2019-07-18] MEDS: amLODIPine BESYLATE 10 MG TABLET (FP) PO SCH (10:39)
[2019-07-18] MEDS: ASPIRIN 325 MG TABLET PO SCH (10:39)
[2019-07-18] MEDS: METHIMAZOLE 5 MG TABLET (FP) PO SCH (10:40)
[2019-07-18] MEDS: SERTRALINE HCL 25 MG TABLET (FP) PO SCH (10:40)
[2019-07-18] MEDS: MULTIVITAMINS (DAILY MVI) TABLET (FP) PO SCH (10:40)
[2019-07-18] MEDS: PANTOPRAZOLE 40 MG TABLET PO SCH (10:40)
--- NOTE | 2019-07-18 11:04 | DS ---
Physical Exam: SUBJECTIVE: Patient seen and examined OBJECTIVE: Vital Signs Period Temp Pulse Resp BP Sys/Blake Pulse Ox Last 24 Hr 98.0 F-98.7 F 71-84 16-20 128-142/56-61 94-97 PHYSICAL EXAM GENERAL: The patient is awake, alert, and fully oriented, in no acute distress. HEAD: Normal with no signs of trauma. EYES: PERRL, extraocular movements intact, sclera anicteric, conjunctiva clear. ENT: Ears normal, nares patent, oropharynx clear without exudates, moist mucous membranes. NECK: Trachea midline, full range of motion, supple. LUNGS: Breath sounds equal, clear to auscultation bilaterally, no wheezes, no crackles, no accessory muscle use. HEART: Regular rate and rhythm, S1, S2 without murmur, rub or gallop. ABDOMEN: Soft, nontender, nondistended, normoactive bowel sounds, no guarding, no rebound, no hepatosplenomegaly, no masses. EXTREMITIES: 2+ pulses, warm, well-perfused, no edema. NEUROLOGICAL: Cranial nerves II through XII grossly intact. Normal speech, gait not observed. PSYCH: Normal mood, normal affect. SKIN: Warm, dry, normal turgor, no rashes or lesions noted. LABS Laboratory Results - last 24 hr 07/18/19 07/18/19 07:57 08:31 WBC 15.6 H RBC 4.64 Hgb 12.6 Hct 37.6 MCV 81.0 MCH 27.2 MCHC 33.6 RDW 12.0 Plt Count 383 MPV 7.9 Absolute Neuts (auto) 13.2 Neutrophils % 84.5 H Lymphocytes % 6.7 L Monocytes % 7.4 Eosinophils % 0.0 Basophils % 1.4 Sodium 132 L Potassium 3.8 Chloride 98 Carbon Dioxide 25 Anion Gap 9 BUN 19.0 H Creatinine 0.7 Est GFR (CKD-EPI)AfAm 103.91 Est GFR (CKD-EPI)NonAf 89.65 Random Glucose 172 H Calcium 9.0 Magnesium 1.9 Total Bilirubin 1.1 H AST 18 ALT 11 L Alkaline Phosphatase 68 Total Protein 7.1 Albumin 3.6 HOSPITAL COURSE: Date of Admission:07/16/19 Date of Discharge: 07/18/19 Minutes to complete discharge: 35 Discharge Summary Problems reviewed: Yes Reason For Visit: ADVANCED DEGENERATIVE, JOINT DISEASE RT KNEE Condition: Improved - Instructions Diet, Activity, Other Instructions: A prescription has been sent to your pharmacy for aspirin 325mg. Take twice daily for 6 weeks. You have been given discharge instructions by your surgeon. Referrals: Clifton Carmona DO [Staff Physician] - Disposition: HOME - Home Medications Comprehensive Discharge Medication List: Ambulatory Orders Methimazole 5 mg PO DAILY 05/14/18 Sertraline HCl [Zoloft -] 25 mg PO DAILY 05/14/18 Simvastatin 20 mg PO DAILY 05/14/18 Amlodipine Besylate 10 mg PO DAILY 07/08/19 Pantoprazole Sodium 40 mg PO DAILY 07/08/19 Aspirin [ASA -] 325 mg PO BID #84 tablet 07/18/19 Prescription Drug Monitoring Program (I-STOP) results: I-STOP reviewed and no issues identified This patient is new to me today: No Emergency Visit: No Critical Care patient: No - Discharge Referral Referred to [facility] Med P.C.: No
--- NOTE | 2019-07-18 11:05 | DS ---
"Physical Exam: SUBJECTIVE: Patient seen and examined OBJECTIVE: Vital Signs Period Temp Pulse Resp BP Sys/Blake Pulse Ox Last 24 Hr 98.0 F-98.7 F 71-84 16-20 128-142/56-61 94-97 PHYSICAL EXAM GENERAL: The patient is awake, alert, and fully oriented, in no acute distress. HEAD: Normal with no signs of trauma. EYES: PERRL, extraocular movements intact, sclera anicteric, conjunctiva clear. ENT: Ears normal, nares patent, oropharynx clear without exudates, moist mucous membranes. NECK: Trachea midline, full range of motion, supple. LUNGS: Breath sounds equal, clear to auscultation bilaterally, no wheezes, no crackles, no accessory muscle use. HEART: Regular rate and rhythm, S1, S2 without murmur, rub or gallop. ABDOMEN: Soft, nontender, nondistended, normoactive bowel sounds, no guarding, no rebound, no hepatosplenomegaly, no masses. EXTREMITIES: 2+ pulses, warm, well-perfused, no edema. NEUROLOGICAL: Cranial nerves II through XII grossly intact. Normal speech, gait not observed. PSYCH: Normal mood, normal affect. SKIN: Warm, dry, normal turgor, no rashes or lesions noted. LABS Laboratory Results - last 24 hr 07/18/19 07/18/19 07:57 08:31 WBC 15.6 H RBC 4.64 Hgb 12.6 Hct 37.6 MCV 81.0 MCH 27.2 MCHC 33.6 RDW 12.0 Plt Count 383 MPV 7.9 Absolute Neuts (auto) 13.2 Neutrophils % 84.5 H Lymphocytes % 6.7 L Monocytes % 7.4 Eosinophils % 0.0 Basophils % 1.4 Sodium 132 L Potassium 3.8 Chloride 98 Carbon Dioxide 25 Anion Gap 9 BUN 19.0 H Creatinine 0.7 Est GFR (CKD-EPI)AfAm 103.91 Est GFR (CKD-EPI)NonAf 89.65 Random Glucose 172 H Calcium 9.0 Magnesium 1.9 Total Bilirubin 1.1 H AST 18 ALT 11 L Alkaline Phosphatase 68 Total Protein 7.1 Albumin 3.6 HOSPITAL COURSE: Date of Admission:07/16/19 Date of Discharge: 07/18/19 This report was requested by: Gillian Meadows | Reference #: [id number] Others' Prescriptions Patient Name: Yulia Browning Date: 1950 Address: [address] [place] [id number]: Female Rx Written Rx Dispensed Drug Quantity Days Supply Prescriber Name Payment Method Dispenser acetaminophen-cod #3 tablet 7 7 Iker Stark MD Other [facility] #[id number] Discharge Summary Problems reviewed: Yes Reason For Visit: ADVANCED DEGENERATIVE, JOINT DISEASE RT KNEE Condition: Improved - Instructions Diet, Activity, Other Instructions: A prescription has been sent to your pharmacy for aspirin 325mg. Take twice daily for 6 weeks. You have been given discharge instructions by your surgeon. Referrals: Clifton Carmona DO [Staff Physician] - Disposition: HOME - Home Medications Comprehensive Discharge Medication List: Ambulatory Orders Methimazole 5 mg PO DAILY 05/14/18 Sertraline HCl [Zoloft -] 25 mg PO DAILY 05/14/18 Simvastatin 20 mg PO DAILY 05/14/18 Amlodipine Besylate 10 mg PO DAILY 07/08/19 Pantoprazole Sodium 40 mg PO DAILY 07/08/19 Aspirin [ASA -] 325 mg PO BID #84 tablet 07/18/19 - Discharge Referral Referred to [facility] No"
[2019-07-18 11:29] LABS: MAGNESIUM 1.8 mg/dL (1.8-2.4)
[2019-07-18 11:30] VITALS: PULSE 84; TEMP 98.2
[2019-07-18 12:04] VITALS: BP 146/62
--- NOTE | 2019-07-20 10:44 | PATH ---
Surgical Pathology Report Patient Name: CELE OREILLY Med. Rec. #: [id number] /Age/Gender: 1950 (Age: 68) / F Account: [id number] Location: [facility] MED-SURG Taken: 07/16/2019 Received: 07/16/2019 Reported: 07/20/2019 Physicians: Clifton Carmona MD Specimen(s) Received BONES RIGHT KNEE Clinical History Osteoarthritis right knee Final Diagnosis BONES, RIGHT KNEE, TOTAL KNEE REPLACEMENT: DEGENERATIVE JOINT DISEASE. Electronically Signed Yany Bustos M.D. Gross Description Received in formalin labeled "bones right knee," is an 11.5 x 9.5 x 2.0 cm aggregate of multiple portions of bone and soft tissue. The tibial plateau measures 7.2 x 5.0 x 1.8 cm. There are multiple areas of eburnation present, measuring up to 1.8 cm in greatest dimension. The remaining articular surfaces are quispe-yellow and focally granular. The underlying trabecular bone is yellow and hard. Movement Therapist sections are submitted in one cassette, following decalcification. /07/16/2019 [facility]07/16/2019
== END 2019-07-18 12:07 | disposition home or self-care (01) | DRG 302 ==
LOC: FM/S 06:16
PROVIDERS: ADMIT Orthopaedic Surgery Sports Medicine; ATTEND Nurse Practitioner Acute Care
PROC: 0SRC0J9 Replacement of Right Knee Joint with Synthetic Substitute, Cemented, Open Approach (ICD-10-PCS; principal; 2019-07-16 08:38)
DX: M17.11 Unilateral primary osteoarthritis, right knee (principal); F41.8 Other specified anxiety disorders
CPT/HCPCS: 36415; 73560-TC-RT-FY; 80048; 80053; 83735; 85025; 85027; 88304-TC; 88311-TC; 94760; 97116-GP; 97162-GP